=== PATIENT | female | born 1990 | race African-American/Black ===

== ENCOUNTER 2017-06-07 22:28 | Emergency (ER) | payer MEDICAID ==
[~2017-06-07] VITALS: Ht 170.2 cm; Wt 66.0 kg
[~2017-06-07 22:28] MED LIST: IBUP800T23 PO
[2017-06-07 22:31] VITALS: BP 128/76; PULSE 96; RESP 16; TEMP 99; O2SAT 100
[2017-06-07] MEDS ORDERED: PRED20 PO (23:41)
[2017-06-07] MEDS ORDERED: RANI150T PO (23:41)
[2017-06-07] MEDS ORDERED: predniSONE 20 MG TAB PO ONE (23:45)
[2017-06-07] MEDS ORDERED: RANITIDINE HCL SYRUP 150 MG/10 ML UDC PO ONE (23:45)
[2017-06-07] MEDS ORDERED: diphenhydrAMINE HCL 50 MG CAP PO ONE (23:45)
--- NOTE | 2017-06-07 23:46 | PD ---
HPI Chief Complaint: Allergic/Adverse Reaction Time Seen by Provider: 11:30 Travel History International Travel<30 days: No Contact w/Intl Traveler<30days: No Traveled to known affect area: No History of Present Illness HPI 27-year-old female presents for evaluation. 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 She began feeling itchiness in her throat, swelling of the lips, periorbital region and itchiness of the eyes. She took some Benadryl and symptoms improved. She finished her shift this evening and came here for evaluation. She denies any unusual chemical combinations. She denies any new medications, creams, lotions, detergents, difficulty swallowing, rash, difficulty breathing. She has no other complaints at this time. Last menstrual period 2 days ago. PFSH Past Medical History Hx Anticoagulant Therapy: No Asthma: Yes Cardiovascular Problems: No Chemotherapy: No Chest Pain: Yes Cerebrovascular Accident: No Diabetes: No Diminished Hearing: No Respiratory: No Immunizations Current: No Tetanus Vaccination: > 5 Years Influenza Vaccination: No ?: Not LMP: 2 DAYS AGO : 3 Para: 2 Miscarriage: 0 : 0 Past Surgical History Surgical History: No Previous Surgery Hysterectomy: No Social History Alcohol Use: No Tobacco Use: No Substance Use: No Allergies-Medications (Allergen,Severity, Reaction): Coded Allergies: No Known Allergies (Verified Adverse Reaction, Unknown, 06/07/17) Reported Meds & Prescriptions Reported Meds & Active Scripts Active Ranitidine (Ranitidine HCl) 150 Mg Tab 150 Mg PO DAILY 5 Days Prednisone 20 Mg Tab 20 Mg PO BID 5 Days Review of Systems Except as stated in HPI: all other systems reviewed are Neg Physical Exam Narrative GENERAL: Well-developed well-nourished female in no acute distress SKIN: Warm and dry. No rash. HEAD: Atraumatic. Normocephalic. EYES: Pupils equal and round. No scleral icterus. No injection or drainage. ENT: No nasal bleeding or discharge. Mucous membranes pink and moist. Very mild bilateral periorbital edema. There is no edema of the lips, tongue, uvula. No stridor or drooling. NECK: Trachea midline. No JVD. CARDIOVASCULAR: Regular rate and rhythm. No murmur appreciated. RESPIRATORY: No accessory muscle use. Clear to auscultation. Breath sounds equal bilaterally. Data Data Last Documented VS Vital Signs Date Time Temp Pulse Resp B/P (MAP) Pulse Ox O2 Delivery O2 Flow Rate FiO2 06/07/17 23:57 06/07/17 22:31 99.0 96 16 100 Orders Orders Ranitidine Liq (Zantac Liq) (06/07/17 23:45) Diphenhydramine (Benadryl) (06/07/17 23:45) Prednisone (Deltasone) (06/07/17 23:45) Ed Discharge Order (06/07/17 23:49) [facility] Medical Decision Making Medical Screen Exam Complete: Yes Emergency Medical Condition: Yes Medical Record Reviewed: Yes Differential Diagnosis Angioedema, acute allergic reaction, anaphylaxis, chemical conjunctivitis Narrative Course 27-year-old female presents with itchy throat, itchy eyes, sensation of swelling of the lips and periorbital region which started 12 hours ago while at work cleaning with soap and water. She took Benadryl several hours ago and her symptoms improved. Physical examination is reassuring. Objectively she appears to have mild bilateral periorbital edema. Physical examination is otherwise unremarkable. The plan is to provide the patient with oral steroids, H1 and H2 antihistamines and discharged with prescriptions for the same. Discussed signs and symptoms that warrant return to the emergency room. She is stable for discharge. Diagnosis Primary Impression: Allergic reaction Qualified Codes: T78.40XA - Allergy, unspecified, initial encounter Additional Instructions: Medication as prescribed. Benadryl every [address] or drink alcohol when taking Benadryl. Follow up closely with primary care physician and return for any acutely new or worsening symptoms. Med/Other Pt SpecificInfo: Prescription(s) given Scripts Ranitidine (Ranitidine) 150 Mg Tab 150 MG PO DAILY for Allergic Reaction for 5 Days, #5 TAB 0 Refills Prov: Steve Gunderson MD 06/07/17 Prednisone (Prednisone) 20 Mg Tab 20 MG PO BID for 5 Days, #10 TAB 0 Refills Prov: Steve Gunderson MD 06/07/17 Disposition: 01 DISCHARGE HOME Condition: Stable Prashanth Weaver Jun 07, 2017 23:46
== END 2017-06-08 00:40 | disposition home or self-care (01) ==
LOC: NEPD 22:28
DX: T78.40XA Allergy, unspecified, initial encounter (principal); L29.9 Pruritus, unspecified; R22.0 Localized swelling, mass and lump, head; J45.909 Unspecified asthma, uncomplicated; Z79.899 Other long term (current) drug therapy
CPT/HCPCS: 99284; J7512; Q0163

== ENCOUNTER 2017-07-06 12:11 | Emergency (ER) | payer MEDICAID ==
[~2017-07-06] VITALS: Ht 167.6 cm; Wt 65.9 kg
[~2017-07-06 12:11] MED LIST changes: -IBUP800T23 PO; +PRED20 PO; +RANI150T PO
[2017-07-06 12:13] VITALS: BP 132/97; PULSE 89; RESP 14; TEMP 98.2; O2SAT 99
--- NOTE | 2017-07-06 13:02 | RADRPT ---
EXAM DATE/TIME: 07/06/2017 12:42 [facility] COMPARISON: No previous studies available for comparison. INDICATIONS : Shortness of breath. MEDICAL HISTORY : None. SURGICAL HISTORY : None. ENCOUNTER: Initial ACUITY: 1 day PAIN SCORE: 0/10 LOCATION: Bilateral chest FINDINGS: PA and lateral views of the chest demonstrate the lungs to be symmetrically aerated without evidence of mass, infiltrate or effusion. The cardiomediastinal contours are unremarkable. Osseous structure s are intact with moderate scoliosis. CONCLUSION: 1. No active disease. Moderate scoliosis. Jordan Diez MD on July 06, 2017 at 12:55 Board Certified Radiologist. This report was verified electronically.
--- NOTE | 2017-07-06 14:32 | PD ---
HPI Chief Complaint: Chest Pain Time Seen by Provider: 14:13 Travel History International Travel<30 days: No Contact w/Intl Traveler<30days: No Traveled to known affect area: No History of Present Illness HPI 27 year old female presents to the emergency department for evaluation of coughing, wheezing and chest pain with inspiration. Patient states the cough and wheezing started last night. The cough is not productive and intermittent in nature. No coughing is noted during history and physical exam. Patient states she has a medical history of childhood asthma but does not take any daily medications because she was told she grew out of it. Patient denies any other major medical history. Patient takes no daily medications. Patient denies any fevers, chills, malaise, abdominal pain, nausea, vomiting, diarrhea, sore throat, runny nose. PFSH Past Medical History Hx Anticoagulant Therapy: No Asthma: Yes Cardiovascular Problems: No Chemotherapy: No Chest Pain: Yes Cerebrovascular Accident: No Diabetes: No Diminished Hearing: No Respiratory: Yes (asthma) Immunizations Current: No ?: Not LMP: 06/29/2017 : 3 Para: 2 Miscarriage: 0 : 0 Tubal Ligation: Yes Past Surgical History Surgical History: No Previous Surgery Hysterectomy: No Social History Alcohol Use: No Tobacco Use: No Substance Use: No Allergies-Medications (Allergen,Severity, Reaction): Coded Allergies: No Known Allergies (Verified Adverse Reaction, Unknown, 06/07/17) Reported Meds & Prescriptions Reported Meds & Active Scripts Active No Active Prescriptions or Reported Medications Review of Systems Except as stated in HPI: all other systems reviewed are Neg Physical Exam Narrative GENERAL: Well nourish, well developed 27 year old female patient in no acute distress. Nontoxic appearing. SKIN: Warm and dry. HEAD: Atraumatic. Normocephalic. EYES: Pupils equal and round. No scleral icterus. No injection or drainage. ENT: No nasal bleeding or discharge. Mucous membranes pink and moist. THROAT: Mild pharyngeal injection and mild bilateral tonsillar hypertrophy, No exudates. Uvula midline. Airway is patent. NECK: Trachea midline. No JVD. CARDIOVASCULAR: Regular rate and rhythm. No murmurs or rubs appreciated. RESPIRATORY: No accessory muscle use. Clear to auscultation. Breath sounds equal bilaterally. GASTROINTESTINAL: Abdomen soft, non-tender, nondistended. Hepatic and splenic margins not palpable. MUSCULOSKELETAL: Extremities without clubbing, cyanosis, or edema. No obvious deformities. NEUROLOGICAL: Awake and alert. No obvious cranial nerve deficits. Motor grossly within normal limits. Five out of 5 muscle strength in the arms and legs. Normal speech. PSYCHIATRIC: Appropriate mood and affect; insight and judgment normal. Data Data Last Documented VS Vital Signs Date Time Temp Pulse Resp B/P (MAP) Pulse Ox O2 Delivery O2 Flow Rate FiO2 07/06/17 13:28 85 100 Room Air 07/06/17 12:13 98.2 14 132/97 (109) Orders Orders Electrocardiogram (07/06/17 ) Chest, Pa & Lat (07/06/17 ) Complete Blood Count With Diff (07/06/17 14:20) Comprehensive Metabolic Panel (07/06/17 14:20) Ckmb (Isoenzyme) Profile (07/06/17 14:20) Troponin I (07/06/17 14:20) Ed Discharge Order (07/06/17 16:35) Labs Laboratory Tests Test 07/06/17 14:45 White Blood Count 3.9 TH/MM3 Red Blood Count 4.13 MIL/MM3 Hemoglobin 10.2 GM/DL Hematocrit 32.4 % Mean Corpuscular Volume 78.3 FL Mean Corpuscular Hemoglobin 24.7 PG Mean Corpuscular Hemoglobin Concent 31.6 % Red Cell Distribution Width 17.2 % Platelet Count 356 TH/MM3 Mean Platelet Volume 7.6 FL Neutrophils (%) (Auto) 43.9 % Lymphocytes (%) (Auto) 28.9 % Monocytes (%) (Auto) 9.0 % Eosinophils (%) (Auto) 16.9 % Basophils (%) (Auto) 1.3 % Neutrophils # (Auto) 1.7 TH/MM3 Lymphocytes # (Auto) 1.1 TH/MM3 Monocytes # (Auto) 0.4 TH/MM3 Eosinophils # (Auto) 0.7 TH/MM3 Basophils # (Auto) 0.1 TH/MM3 CBC Comment DIFF FINAL Differential Comment Blood Urea Nitrogen 8 MG/DL Creatinine 0.60 MG/DL Random Glucose 82 MG/DL Total Protein 7.8 GM/DL Albumin 3.6 GM/DL Calcium Level 8.9 MG/DL Alkaline Phosphatase 44 U/L Aspartate Amino Transf (AST/SGOT) 19 U/L Alanine Aminotransferase (ALT/SGPT) 20 U/L Total Bilirubin 0.4 MG/DL Sodium Level 140 MEQ/L Potassium Level 3.8 MEQ/L Chloride Level 107 MEQ/L Carbon Dioxide Level 28.9 MEQ/L Anion Gap 4 MEQ/L Estimat Glomerular Filtration Rate 145 ML/MIN Total Creatine Kinase 86 U/L Troponin I LESS THAN 0.02 NG/ML MDM Medical Decision Making Medical Screen Exam Complete: Yes Emergency Medical Condition: Yes Differential Diagnosis Differential diagnosis include but not limited to bronchitis, asthma exacerbation, pneumonia Narrative Course Patient placed on monitor, IV obtained, CBC, CMP, troponin, CK-MB ordered and pending. EKG ordered and pending. Chest x-ray ordered and pending. EKG shows sinus rhythm with sinus arrhythmia with heart rate 73 Chest x-ray shows no active disease. Moderate scoliosis. CBC shows mild anemia with hemoglobin 10.2 CMP shows no acute abnormality. Troponin is less than 0.02. CK-MB is 86. There is no wheezing or coughing noted while the patient is in our facility. Patient is afebrile, no tachycardia. No acute respiratory distress. Lung sounds clear to auscultation. No respiratory accessory muscle use. She'll be discharged home with instructions for supportive care, follow up with primary care and otherwise return the emergency Department with any worsening condition. Diagnosis Primary Impression: URI (upper respiratory infection) Qualified Codes: J06.9 - Acute upper respiratory infection, unspecified Referrals: Primary Care Physician Patient Instructions: General Instructions, Upper Respiratory Infection (ED) Additional Instructions: Please return to emergency department if your symptoms return or worsen. Follow up with your primary care provider. Supportive care, stay hydrated, get enough rest, diet as tolerated. May use [id number] ibuprofen or Tylenol as needed for pain or fever. May use [id number] Robitussin-DM as needed for cough. Scripts No Active Prescriptions or Reported Meds Disposition: 01 DISCHARGE HOME Condition: Stable Ananya Hickey LEV Jul 06, 2017 14:32
[2017-07-06 15:11] LABS: AUTOMATED NEUTROPHIL # 1.7 TH/MM3 (1.8-7.7); BASOPHIL # 0.1 TH/MM3 (0-0.2); BASOPHIL % 1.3 % (0.0-2.0); EOSINOPHIL # 0.7 TH/MM3 (0-0.4); EOSINOPHIL % 16.9 % (0.0-4.0); HEMATOCRIT 32.4 % (35.0-46.0); HEMOGLOBIN 10.2 GM/DL (11.6-15.3); LYMPH % 28.9 % (9.0-44.0); LYMPHOCYTE # 1.1 TH/MM3 (1.0-4.8); MEAN CELL VOLUME 78.3 FL (80.0-100.0); MEAN CORPUSCULAR HEMOGLOBIN 24.7 PG (27.0-34.0); MEAN CORPUSCULAR HGB CONC 31.6 % (32.0-36.0); MEAN PLATELET VOLUME 7.6 FL (7.0-11.0); MONOCYTE # 0.4 TH/MM3 (0-0.9); NEUT % 43.9 % (16.0-70.0); PLATELET COUNT 356 TH/MM3 (150-450); RED BLOOD COUNT 4.13 MIL/MM3 (4.00-5.30); RED CELL DISTRIBUTION WIDTH 17.2 % (11.6-17.2); WHITE BLOOD COUNT 3.9 TH/MM3 (4.0-11.0)
[2017-07-06 15:29] LABS: ALBUMIN 3.6 GM/DL (3.4-5.0); AST (GOT) 19 U/L (15-37); BICARBONATE 28.9 MEQ/L (21.0-32.0); BLOOD UREA NITROGEN 8 MG/DL (7-18); CALCIUM 8.9 MG/DL (8.5-10.1); CHLORIDE 107 MEQ/L (98-107); GLOMERULAR FILTRATION RATE 145 ML/MIN (>89); GLUCOSE,RANDOM 82 MG/DL (74-106); SODIUM (NA) 140 MEQ/L (136-145)
[2017-07-06 15:33] LABS: ALKALINE PHOSPHATASE 44 U/L (45-117); ALT (GPT) 20 U/L (10-53); TOTAL BILIRUBIN ADULT 0.4 MG/DL (0.2-1.0); TOTAL PROTEIN 7.8 GM/DL (6.4-8.2); TROPONIN I LESS THAN 0.02 NG/ML (0.02-0.05)
--- NOTE | 2017-07-07 12:48 | EKG ---
Date Performed: 07/06/2017 Time Performed: 12:22:33 PTAGE: 27 years EKG: Sinus rhythm WITH SINUS ARRHYTHMIA BORDERLINE RIGHT AXIS DEVIATION BORDERLINE ECG NO PREVIOUS TRACING DOCTOR: Seng Thomas Interpretating Date/Time 07/07/2017 12:47:11
== END 2017-07-06 17:09 | disposition home or self-care (01) ==
LOC: NEPE 12:11
DX: J06.9 Acute upper respiratory infection, unspecified (principal)
CPT/HCPCS: 71046; 80053; 82550; 84484; 85025; 93005; 99285

== ENCOUNTER 2017-09-15 04:50 | Emergency (ER) | payer MEDICAID ==
[~2017-09-15] VITALS: Ht 170.2 cm; Wt 70.5 kg
[2017-09-15 04:56] VITALS: BP 137/72; PULSE 96; RESP 16; TEMP 99.2; O2SAT 95
[2017-09-15] MEDS ORDERED: DEXAMETHASONE SOD PHOS 4 MG/ML VIAL IM ONE (05:15)
[2017-09-15] MEDS ORDERED: SODIUM CHLORIDE 0.9% FLUSH 10 ML FLUSH IVF PRN (05:15)
--- NOTE | 2017-09-15 05:30 | RADRPT ---
EXAM DATE/TIME: 09/15/2017 05:12 [facility] COMPARISON: No previous studies available for comparison. INDICATIONS : Shortness of breath. MEDICAL HISTORY : None. SURGICAL HISTORY : None. ENCOUNTER: Initial ACUITY: 1 day PAIN SCORE: 5/10 LOCATION: Bilateral chest FINDINGS: 2 portable frontal views of the chest show hyperinflation. No infiltrate or effusion. Heart normal in size. Sclerotic curvature to the spine. CONCLUSION: Hyperinflation. Clear lungs. Chris Mejias Jr., MD on September 15, 2017 at 5:28 Board Certified Radiologist. This report was verified electronically.
[2017-09-15] MEDS: RESP: ALBUTEROL 2.5 MG/IPRATROPIUM 0.5 MG NEB (SCH) INH (05:34)
[2017-09-15] MEDS ORDERED: ALBU6.7H INH (06:07)
--- NOTE | 2017-09-15 06:07 | PD ---
HPI Chief Complaint: Respiratory Symptoms Time Seen by Provider: 05:03 Travel History International Travel<30 days: No Contact w/Intl Traveler<30days: No Traveled to known affect area: No History of Present Illness HPI 27-year-old female arrives with shortness of breath for about 3-4 days. She has history of asthma. She reports occasional coughing. She denies fever. She reports some chest discomfort after spells of severe coughs. Severity mild to moderate. PFSH Past Medical History Hx Anticoagulant Therapy: No Asthma: Yes Cardiovascular Problems: No Chemotherapy: No Chest Pain: Yes Cerebrovascular Accident: No Diabetes: No Diminished Hearing: No Respiratory: Yes (asthma) Immunizations Current: No ?: Not : 3 Para: 3 Miscarriage: 0 : 0 Tubal Ligation: Yes Past Surgical History Hysterectomy: No Social History Alcohol Use: No Tobacco Use: No Substance Use: No Allergies-Medications (Allergen,Severity, Reaction): Coded Allergies: No Known Allergies (Verified Adverse Reaction, Unknown, 09/15/17) Reported Meds & Prescriptions Reported Meds & Active Scripts Active No Active Prescriptions or Reported Medications Review of Systems Except as stated in HPI: all other systems reviewed are Neg General / Constitutional: No: Fever HENT: No: Headaches Physical Exam Narrative GENERAL: 27-year-old female pleasant well-nourished well-developed Vital Signs Date Time Temp Pulse Resp B/P (MAP) Pulse Ox O2 Delivery O2 Flow Rate FiO2 09/15/17 04:56 99.2 96 16 137/72 (93) 95 Room Air SKIN: Warm and dry. HEAD: Atraumatic. Normocephalic. EYES: Pupils equal and round. No scleral icterus. No injection or drainage. ENT: No nasal bleeding or discharge. Mucous membranes pink and moist. NECK: Trachea midline. No JVD. CARDIOVASCULAR: Regular rate and rhythm. RESPIRATORY: Occasional wheezing is present bilaterally. There is a respiratory rate about 18. GASTROINTESTINAL: Abdomen soft, non-tender, nondistended. Hepatic and splenic margins not palpable. MUSCULOSKELETAL: Extremities without clubbing, cyanosis, or edema. No obvious deformities. NEUROLOGICAL: Awake and alert. No obvious cranial nerve deficits. Motor grossly within normal limits. Five out of 5 muscle strength in the arms and legs. Normal speech. PSYCHIATRIC: Appropriate mood and affect; insight and judgment normal. Data Data Last Documented VS Vital Signs Date Time Temp Pulse Resp B/P (MAP) Pulse Ox O2 Delivery O2 Flow Rate FiO2 09/15/17 04:56 99.2 96 16 137/72 (93) 95 Room Air Orders Orders Oximetry (09/15/17 05:06) Chest, Single Ap (09/15/17 05:06) Sodium Chloride 0.9% Flush (Ns Flush) (09/15/17 05:15) Albuterol-Ipratropium Neb (Duoneb Neb) (09/15/17 05:15) Dexamethasone Inj (Decadron Inj) (09/15/17 05:15) MDM Medical Decision Making Medical Screen Exam Complete: Yes Emergency Medical Condition: Yes Medical Record Reviewed: Yes Differential Diagnosis Pneumonia, asthma, pneumothorax Narrative Course Chest x-ray shows no dense consolidation. The patient received duo nebs here and reports significant improvement. In the absence of fever is considered appropriate to defer antibiotics. Scripts as below. Diagnosis Primary Impression: Wheezing Referrals: Primary Care Physician Med/Other Pt SpecificInfo: Prescription(s) given Scripts Albuterol 6.7 GM Inh (Proventil Hfa 6.7 GM Inh) 90 Mcg/Act Aer 2 PUFF INH Q6H Y for SHORTNESS OF BREATH, #1 INHALER 1 Refill Prov: Perry Shore MD 09/15/17 Disposition: 01 DISCHARGE HOME Condition: Stable Perry Shore MD Sep 15, 2017 06:07
[2017-09-15 06:19] VITALS: O2SAT 98
== END 2017-09-15 06:27 | disposition home or self-care (01) ==
LOC: NEPC 04:50
DX: J45.909 Unspecified asthma, uncomplicated (principal)
CPT/HCPCS: 71045; 94640; 94664; 96372; 99283; J1100